=== PATIENT | male | born 1980 | race Hispanic/Latino ===

== ENCOUNTER 2019-09-17 15:12 | Emergency (ER) | payer OTHER ==
[~2019-09-17] VITALS: Ht 165.1 cm; Wt 93.0 kg
--- OUTSIDE RECORDS SUMMARY | ~2019-09-17 | XMS | Encounter Summary ---
Demographics + + + | Address | [address] | | | [place] [address] | + + + | Home Phone | | + + + | Preferred Language | Unknown | + + + | Marital Status | | + + + | Gnosticist Affiliation | Unknown | + + + | Race | Unknown | + + + | Ethnic Group | Unknown | + + + Author + + + | Author | [facility] | | | and [place] | + + + | Organization | [facility] | | | and [place] | + + + | Address | Unknown | + + + | Phone | Unavailable | + + + Support + + +---------+ + | Name | Relationship | Address | Phone | + + +---------+ + | Madiha Garcia | ECON | Unknown | | + + +---------+ + Care Team Providers + +------+ + | Care Brim Curler Name | Role | Phone | + +------+ + | Ladan Naidu PA-C | PCP | | + +------+ + Reason for Visit +--------+ + | Reason | Comments | +--------+ + | Other | Injection Post Surgery | +--------+ + Encounter Details +--------+ + + + + | Date | Type | Department | Care Team | Description | +--------+ + + + + | 09/29/ | Telephone | [facility] | Silverio Mustafa | Other (Injection | | 2019 | | [facility] | [address] | Post Surgery) | | | | [address] | [address] | | | | | [place], [place] | [place] [address] | | | | | [address] | [phone] | | | | | [phone] | | | +--------+ + + + + Social History + +-------+ +--------+------+ | Tobacco Use | Types | Packs/Day | Years | Date | | | | | Used | | + +-------+ +--------+------+ | Current Every Day | | 0.25 | | | | Smoker | | | | | + +-------+ +--------+------+ + +---+---+---+ | Smokeless Tobacco: | | | | | Never Used | | | | + +---+---+---+ + + +---------+ + | Alcohol Use | Drinks/Week | oz/Week | Comments | + + +---------+ + | No | | | | + + +---------+ + + + + | Sex Assigned at | Date Recorded | | | | + + + | Not on file | | + + + + + + + | Job Start Date | Occupation | Industry | + + + + | Not on file | Not on file | Not on file | + + + + + + + + | Travel History | Travel Start | Travel End | + + + + + + | No recent travel history available. | + + documented as of this encounter Plan of Treatment Not on filedocumented as of this encounter Visit Diagnoses Not on filedocumented in this encounter"
--- OUTSIDE RECORDS SUMMARY | ~2019-09-17 | XMS | Clinical Summary ---
Demographics + + + | Address | [address] | | | [place] [address] | + + + | Home Phone | | + + + | Preferred Language | Unknown | + + + | Marital Status | | + + + | Jew Affiliation | Unknown | + + + | Race | Unknown | + + + | Ethnic Group | Unknown | + + + Author + + + | Author | [facility] | | | and [place] | + + + | Organization | [facility] | | | and [...] Team Providers + +------+ + | Care Travel Accommodation Inspector Name | Role | Phone | + +------+ + | Ladan Naidu PA-C | PCP | | + +------+ + Allergies + + + + + + | Active Allergy | Reactions | Severity | Noted | Comments | | | | | Date | | + + + + + + | Aspirin | Rash | Low | 01/19/20 | | | | | | 18 | | + + + + + + | Ondansetron | Rash | Low | 01/19/20 | | | | | | 18 | | + + + + + + Medications + + + +---------+------+------+-------+ | Medication | Sig | Dispensed | Refills | Star | End | Statu | | | | | | t | Date | s | | | | | | Date | | | + + + +---------+------+------+-------+ | atorvaSTATin | Take 20 mg by mouth | | 0 | 08/0 | | Activ | | (LIPITOR) 20 mg | Daily. | | | 02/02 | | e | | tablet | | | | 18 | | | + + + +---------+------+------+-------+ | | | | 0 | 08/1 | | Activ | | HYDROcodone-acetamin | | | | 5/20 | | e | | ophen (NORCO) 10-325 | | | | 18 | | | | mg per tablet | | | | | | | + + + +---------+------+------+-------+ | | | | 0 | 08/2 | | Activ | | lidocaine-prilocaine | | | | 6/20 | | e | | (EMLA) cream | | | | 18 | | | + + + +---------+------+------+-------+ | SUDOGEST 12 HOUR | | | 0 | 06/2 | | Activ | | 120 MG 12 hr tablet | | | | 7/20 | | e | | | | | | 18 | | | + + + +---------+------+------+-------+ | Diclofenac Sodium | Place onto the | | 0 | | | Activ | | (DICLO GEL) 1 % KIT | skin. | | | | | e | + + + +---------+------+------+-------+ | busPIRone (BUSPAR) | Take 7.5 mg by mouth | | 0 | | | Activ | | 7.5 MG tablet | 3 times daily. | | | | | e | + + + +---------+------+------+-------+ | ibuprofen | | | 0 | 03/1 | | Activ | | (ADVIL,MOTRIN) 600 | | | | 5/20 | | e | | MG tablet | | | | 19 | | | + + + +---------+------+------+-------+ | VENTOLIN HFA 108 | | | 0 | 01/1 | | Activ | | (90 Base) MCG/ACT | | | | 4/20 | | e | | inhaler | | | | 19 | | | + + + +---------+------+------+-------+ | tiZANidine | | | 0 | 04/1 | | Activ | | (ZANAFLEX) 4 mg | | | | 8/20 | | e | | tablet | | | | 19 | | | + + + +---------+------+------+-------+ Active Problems + + + | Problem | Noted Date | + + + | S/P right ring finger trigger finger release on 08/11/18 | 08/22/2018 | + + + Family History + + +------+ + | Medical History | Relation | Name | Comments | + + +------+ + | No known problems | Father | | | + + +------+ + | Arthritis | Mother | | | + + +------+ + + +------+ + + | Relation | Name | Status | Comments | + +------+ + + | Father | | | | + +------+ + + | Mother | | Alive | | + +------+ + + Social History + +-------+ +--------+------+ [...] recent travel history available. | + + Last Filed Vital Signs + + + + + | Vital Sign | Reading | Time Taken | Comments | + + + + + | Blood Pressure | 134/81 | 10/06/2018 1:56 PM | | | | | PDT | | + + + + + | Pulse | 77 | 10/06/2018 1:56 PM | | | | | PDT | | + + + + + | Temperature | 36.6 C (97.9 F) | 10/06/2018 1:56 PM | | | | | PDT | | + + + + + | Respiratory Rate | 20 | 10/06/2018 1:56 PM | | | | | PDT | | + + + + + | Oxygen Saturation | 99% | 10/06/2018 1:56 PM | | | | | PDT | | + + + + + | Inhaled Oxygen | - | - | | | Concentration | | | | + + + + + | Weight | 92.5 kg (204 lb) | 08/11/2018 7:11 AM | | | | | PDT | | + + + + + | Height | 165.1 cm (5' 5") | 08/11/2018 7:11 AM | | | | | PDT | | + + + + + | Body Mass Index | 33.95 | 08/11/2018 7:11 AM | | | | | PDT | | + + + + + Plan of Treatment + + + + + | Health Maintenance | Due Date | Last Done | Comments | + + + + + | Vaccine: | | | | | Pneumococcal 19-64 | 7 | | | | (1 of 1 - PPSV23) | | | | + + + + + | Vaccine: | | | | | Dtap/Tdap/Td (1 - | 2 | | | | Tdap) | | | | + + + + + | Vaccine: Influenza | | 04/02/2018, 03/01/2017, | | | (Season Ended) | 0 | 02/23/2016, Additional history | | | | | exists | | + + + + + Results Not on filefrom Last 3 Months Insurance + +--------+ +--------+ +---------+--------+ | Payer | Benefi | Subscriber | Effect | Phone | Address | Type | | | t Plan | ID | tiny | | | | | | / | | Dates | | | | | | Group | | | | | | + +--------+ +--------+ +---------+--------+ | [employer] | [employer] | [id number] | 11/18/19 | [phone] | | Medica | | MEDICAID HMO | HEALTH | | 16-Pre | 1 | | id | | | MDCD | | sent | | | | | | [place] | | | | | | + +--------+ +--------+ +---------+--------+ | [employer] | [employer] | [id number] | | [phone] | | Medica | | MEDICAID HMO | HEALTH | | [phone] | 1 | | id | | | MDCD | | esent | | | | | | [place] | | | | | | + +--------+ +--------+ +---------+--------+ + +--------+ +--------+ + + | Guarantor Name | Accoun | Relation to | Date | Phone | Billing Address | | | t Type | Patient | of | | | | | | | | | | + +--------+ +--------+ + + | PadmajaelinaAris | Person | Self [birth year] | [address] | | | al/Fam | | 1981 | [phone] | [place], [place] | | | swapna | | | [address] (Home) | [address] | + +--------+ +--------+ + + | PadmajaelinaAris | Person | Self [birth year] | [address] | | | al/Fam | | 1981 | [phone] | [place], [place] | | | swapna | | | [address] (Home) | [address] | + +--------+ +--------+ + + Advance Directives + + + + + | Type | Date Recorded | Patient | Explanation | | | | Petrol Tanker Driver | | + + + + + | Power of | | | | | Ceramic Tile Installer | | | | + + + + + | Advance | 10/06/2018 6:45 | | | | Directive | AM | | | + + + + + + + + + + | Code Status | Date | Date | Comments | | | Activated | Inactivated | | + + + + + | Full Code | 08/11/2018 | 08/11/2018 | | | | 8:29 AM | 11:56 AM | | + + + + +
--- OUTSIDE RECORDS SUMMARY | ~2019-09-17 | XMS | Encounter Summary ---
Demographics + + + | Address | [address] | | | [place] [address] | + + + | Home Phone | | + + + | Preferred Language | Unknown | + + + | Marital Status | | + + + | Mandaeism Affiliation | Unknown | + + + | Race | Unknown | + + + | Ethnic Group | Unknown | + + + Author + + + | Author | [facility] | | | and [place] | + + + | Organization | [facility] | | | [...] Team Providers + +------+ + | Care Seedling Sorter Name | Role | Phone | + +------+ + | Ladan Naidu PA-C | PCP | | + +------+ + Reason for Visit +--------+ + | Reason | Comments | +--------+ + | Other | Canceled Pre-op apt | +--------+ + Encounter Details +--------+ + + + + | Date | Type | Department | Care Team | Description | +--------+ + + + + | 07/04/ | Telephone | [facility] | Silverio Mustafa | Other (Canceled | | 2019 | | [facility] | [address] | Pre-op apt) | | | | [address] | [address] | | | | | [place], [place] | [place] [address] | | | | | [address] | [phone] | | | | | [phone] | | | +--------+ + + + [...]
--- OUTSIDE RECORDS SUMMARY | ~2019-09-17 | XMS | Encounter Summary ---
Demographics + + + | Address | [address] | | | [place] [address] | + + + | Home Phone | | + + + | Preferred Language | Unknown | + + + | Marital Status | | + + + | Sikhism Affiliation | Unknown | + + + | Race | Unknown | + + + | Ethnic Group | Unknown | + + + Author + + + | Author | [facility] | | | and [place] | + + + | Organization | [facility] | | | [...] Team Providers + +------+ + | Care Laborer Vineyard Name | Role | Phone | + +------+ + | Ladan Naidu PA-C | PCP | | + +------+ + Reason for Visit + + + | Reason | Comments | + + + | Follow-up | R ring finger injection 01/18/18 | + + + Evaluate & Treat (Routine) +--------+--------+ + + + + | Status | Reason | Specialty | Diagnoses / | Referred By | Referred To | | | | | Procedures | Contact | Contact | +--------+--------+ + + + + | Closed | | Orthopedic | Diagnoses | Elysia, | [facility] | | | | Surgery | Primary | LÁZARO Pickering | Orthopedic | | | | | osteoarthrit | [address] | | | | | is, right | [place] | [place] | | | | | hand R ring | [address] | [place] | | | | | finger pain | [place], | [address] | | | | | Procedures | [place] [address] | Phone: | | | | | hand | Phone: | [phone] | | | | | specialist | [phone] | Fax: | | | | | | Fax: | [phone] | | | | | | [phone] | | +--------+--------+ + + + + Encounter Details +--------+---------+ + + + | Date | Type | Department | Care Team | Description | +--------+---------+ + + + | 02/08/ | Office | [facility] | Silverio Mustafa | Trigger ring finger, | | 2017 | Visit | [facility] | [address] | unspecified | | | | [address] | [address] | laterality (Primary | | | | [place], [place] | [place] [address] | Dx); Trigger finger, | | | | [address] | [phone] | right middle finger | | | | [phone] | | | +--------+---------+ + + + Social History + +-------+ [...] + + documented as of this encounter Last Filed Vital Signs + + + + + | Vital Sign | Reading | Time Taken | Comments | + + + + + | Blood Pressure | 130/86 | 02/08/2018 4:13 PM | | | | | PDT | | + + + + + | Pulse | 77 | 02/08/2018 4:13 PM | | | | | PDT | | + + + + + | Temperature | 36.6 C (97.9 F) | 02/08/2018 4:13 PM | | | | | PDT | | + + + + + | Respiratory Rate | 20 | 02/08/2018 4:13 PM | | | | | PDT | | + + + + + | Oxygen Saturation | 98% | 02/08/2018 4:13 PM | | | | | PDT | | + + + + + | Inhaled Oxygen | - | - | | | Concentration | | | | + + + + + | Weight | 93.9 kg (207 lb) | 02/08/2018 4:13 PM | | | | | PDT | | + + + + + | Height | 165.1 cm (5' 5") | 02/08/2018 4:13 PM | | | | | PDT | | + + + + + | Body Mass Index | 34.45 | 02/08/2018 4:13 PM | | | | | PDT | | + + + + + documented in this encounter Progress Notes Silverio Mutsafa MD - 02/08/2018 4:30 PM PDT Date of Service: 02/08/2018 Provider: Silverio Mustafa Pt. Name/Age/: Aris Garcia 37 y.o. 1980 Date of Evalutaion: 02/08/2018 HISTORY AND PHYSICAL CHIEF COMPLAINT: Chief Complaint Patient presents with Follow-up R ring finger injection 01/18/18 HISTORY OF PRESENT ILLNESS Aris Garcia is a 37 y.o. year old right hand dominant male that follows up in the off ice today for a history of multiple finger STS. He is now 3 weeks status post a right ring finger A1 ritchie injection for STS of the right ring finger. The patient reports he did hav e some initial relief approximately a week and a half. Then the morning catching and lockin g returned. He still has some referred pain to the volar PIP joint. He also reports the mi ddle finger catches and locks a lot but is nonpainful. Past Medical History: Diagnosis Date Asthma Past Surgical History: Procedure Laterality Date CARPAL TUNNEL RELEASE Bilateral SHOULDER SURGERY Family History Problem Relation Age of Onset Arthritis Mother No Known Problems Father Social History Substance Use Topics Smoking status: Current Every Day Smoker Packs/day: 0.25 Smokeless tobacco: Never Used Alcohol use No ALLERGIES Allergies Allergen Reactions Aspirin Rash Ondansetron Rash REVIEW OF SYSTEMS Review of systems: Patient denies any nausea vomiting fevers chills chest pain shortness o f breath difficulty breathing constipation diarrhea blood in the stool blood or in the urine . All other systems reviewed except as mentioned above and in the HPI were negative. PHYSICAL EXAM Vitals: 02/08/18 1613 BP: 130/86 Pulse: 77 Resp: 20 Temp: 36.6 C (97.9 F) PainSc: 7 PainLoc: Finger No acute distress. Alert and oriented to time, person and place. Regular rate and rhythm by radial pulse examination Chest rise equal and symmetric, no labored breathing Abdomen soft and non-tender Bilateral upper extremities: Wrist range of motion shows 60 degrees of flexion and 60 degrees of extension. Pronation a nd supination are 80 degrees apiece. Wrist examination shows negative finger extension test , IVONE, scaphoid shift, ballottement, TFCC, DRUJ, shuck and catch-up clunk testing. Digital range of motion is full with flexion to the distal palmar crease, extension includi ng hyperextension at the MP joints; opposition of the thumb is to the base of the small fing er. Marely's test is negative. Grind testing is negative. There is mild nodularity o f the right ring finger and middle finger and left middle finger flexor tendons. He is tend er to palpation at the right ring finger A1 ritchie. No triggering observed today. Tinel's is negative at the carpal tunnel, cubital tunnel, dorsal radial sensory nerve, radi al nerve, and Guyon's canal. The patient has 5 out of 5 strength in each of the thenars, fi rst dorsal interosseous, and FPL. Forearm compression test, Phalen's test, elbow compressio n test and cubital tunnel compression test are negative. There is 4 mm two-point discrimina tion in all digits. Vascular examination shows less than 2 second capillary refill, normal rugal and use patter ns; no trophic changes are noted. ASSESSMENT AND PLAN Aris Garcia is a 37 y.o. year old right hand dominant male with right ring and middle finger STS and left middle finger STS. PLAN: We discussed again the pathogenesis trigger fingers bilaterally. The patient did get relie f from the cortisone injection although it was temporarily. The right hand is the most symp tomatic hand with the ring and middle finger being involved. At this time the patient has f long conservative measures and he is indicated for a right ring and middle finger A1 ritchie release. The risks, benefits and alternatives of surgery were discussed at length. The risks includ e but are not limited to: Bleeding, infection, neurovascular damage, pain, stiffness, need for further surgeries, loss of limb and all risks associated with anesthesia including loss of life. The patient understood these risks. All questions were answered. The patient wan moreno to proceed with surgery. Patient to be scheduled for a right ring and middle finger A1 ritchie release/trigger finger releases. Electronically signed by: Silverio Mustafa MD 02/08/2018 16:30 CC: LÁZARO Figueredo Linda, PA-C Note: Part of this report was transcribed using voice recognition software. Every effort wa s made to ensure accuracy. However, inadvertent computerized content specialist errors may be pre sent. documented in thi s encounter Plan of Treatment Not on filedocumented as of this encounter Results CBC no Differential (02/08/2018 5:01 PM PDT) + +-------+ + + + | Component | Value | Ref Range | Performed | Pathologist | | | | | At | Signature | + +-------+ + + + | WBC | 8.6 | 4.6 - 10.5 K/uL | [place] | | | | | | [facility] | | | [facility] | | + +-------+ + + + | RBC | 4.53 | 4.36 - 5.83 | [place] | | | | | M/uL | [facility] | | | | [facility] | | + +-------+ + + + | Hemoglobin | 13.9 | 13.1 - 17.4 | [place] | | | | | g/dL | [facility] | | | [facility] | | + +-------+ + + + | Hematocrit | 41.4 | 39.0 - 51.9 % | [facility] | | | | | | [facility] | | + +-------+ + + + | MCV | 91.4 | 82.0 - 96.0 fL | [facility] | | | | | | [facility] | | + +-------+ + + + | MCH | 30.7 | 27.7 - 32.3 pg | [facility] | | | | | | [facility] | | + +-------+ + + + | MCHC | 33.6 | 32.0 - 36.9 | [place] | | | | | g/dL | [facility] | | | | [facility] | | + +-------+ + + + | RDW-CV | 13.7 | 0.0 - 17.0 % | [facility] | | | | | | [facility] | | | | | [facility] | | + +-------+ + + + | Platelet | 333 | 150 - 450 K/uL | [facility] | | | Count | | | [facility] | | | | | | [facility] | | + +-------+ + + + | MPV | 10.5 | 9.4 - 12.4 fL | [facility] | | | | | | [facility] | | | | | [facility] | | + +-------+ + + + + + | Specimen | + + | Blood | + + + + + + + | Performing | Address | City/State/Zipcode | Phone Number | | Organization | | | | + + + + + | [facility] | [address] | [place] | [phone] | | [facility] | | [address] | | + + + + + Basic Metabolic Panel (02/08/2018 5:01 PM PDT) + +---------+ + + + | Component | Value | Ref Range | Performed | Pathologist | | | | | At | Signature | + +---------+ + + + | Na | 138 | 132 - 143 | [place] | | | | | mmol/L | [facility] | [facility] | | + +---------+ + + + | K | 3.9 | 3.3 - 4.9 | [place] | | | | | mmol/L | [facility] | [facility] | | + +---------+ + + + | Cl | 103 | 95 - 108 mmol/L | [facility] | | | | | | [facility] | [facility] | | + +---------+ + + + | CO2 | 27 | 23 - 34 mmol/L | [facility] | | | | | | [facility] | | + +---------+ + + + | Anion Gap | 8 | 7 - 16 mmol/L | [facility] | | | | | | [facility] | | + +---------+ + + + | Glucose | 130 (H) | 70 - 110 mg/dL | [facility] | | | | | | [facility] | | | | [facility] | | + +---------+ + + + | BUN | 12 | 5 - 26 mg/dL | [facility] | | | | | | [facility] | | | | [facility] | | + +---------+ + + + | Creatinine | 0.99 | 0.70 - 1.40 | [facility] | | | | | mg/dL | [facility] | | | | | | [facility] | | + +---------+ + + + | eGFR if not | >60 | >=60 | [facility] | | | | | mL/min/1.73m2 | [facility] | | | [facility] | | | | | | [facility] | | + +---------+ + + + | Calcium | 8.9 | 8.3 - 10.0 | [facility] | | | | | mg/dL | [facility] | | | | | | [facility] | | + +---------+ + + + | BUN/Creatin | 12.1 | 7.0 - 24.0 | [facility] | | | ine Ratio | | | [facility] | | | | | | [facility] | | + +---------+ + + + + + | Specimen | + + | Blood | + + + + + + + | Performing | Address | City/State/Zipcode | Phone Number | | Organization | | | | + + + + + | [facility] | [address] | [place] | [phone] | | [facility] | | [address] | | + + + + + documented in this encounter Visit Diagnoses + + | Diagnosis | + + | Trigger ring finger, unspecified laterality - Primary | + + documented in this encounter
--- OUTSIDE RECORDS SUMMARY | ~2019-09-17 | XMS | Encounter Summary ---
Demographics + + + | Address | [address] | | | [place] [address] | + + + | Home Phone | | + + + | Preferred Language | Unknown | + + + | Marital Status | | + + + | Taoist Affiliation | Unknown | + + + | Race | Unknown | + + + | Ethnic Group | Unknown | + + + Author + + + | Author | [facility] | | | and [place] | + + + | Organization | [facility] | | | [...] Team Providers + +------+ + | Care Cosmetic Counselor Name | Role | Phone | + +------+ + | Ladan Naidu PA-C | PCP | | + +------+ + Reason for Visit + + + | Reason | Comments | + + + | Follow-up | [facility]OVE R Ring Trigger Finger Release DOS: 08/11/18 | + + + Encounter Details +--------+---------+ + + + | Date | Type | Department | Care Team | Description | +--------+---------+ + + + | 10/06/ | Office | [facility] | Silverio Mustafa | S/P right ring | | 2019 | Visit | [facility] | [address] | finger trigger | | | | [address] | [address] | finger release on | | | | [place], [place] | [place] [address] | 08/11/18 (Primary Dx) | | | | [address] | [phone] | | | | | [phone] | | | +--------+---------+ + + + [...] + + + + | Weight | - | - | | + + + + + | Height | - | - | | + + + + + | Body Mass Index | - | - | | + + + + + documented in this encounter Progress Notes Silverio Mustafa MD - 10/06/2018 2:15 PM PDT Date of Service: 10/06/2018 Provider: Silverio Mustafa Pt. Name/Age/: Aris Garcia 38 y.o. 1980 Date of Evalutaion: 10/06/2018 FOLLOW UP HAND SURGERY VISIT CHIEF COMPLAINT: Chief Complaint Patient presents with Follow-up EP PO R Ring Trigger Finger Release DOS: 08/11/18 HISTORY OF PRESENT ILLNESS Aris Garcia is a 38 y.o. year old right hand dominant male that follows up in the off ice today for his right ring finger. He is now 7-8 weeks after the A1 ritchie release. The patient reports about 6 week postop. He started to have pain again at the surgical site. D enies any drainage denies any numbness or tingling. Past Medical History: Diagnosis Date Asthma Past Surgical History: Procedure Laterality Date CARPAL TUNNEL RELEASE Bilateral FINGER TRIGGER RELEASE Right 08/11/2018 Procedure: RELEASE TRIGGER FINGEr Ring; Surgeon: Silverio Mustafa MD; Location: [facility] SURGERY SHOULDER SURGERY Family History Problem Relation Age of Onset Arthritis Mother No known problems Father Social History Tobacco Use Smoking status: Current Every Day Smoker Packs/day: 0.25 Smokeless tobacco: Never Used Substance Use Topics Alcohol use: No Drug use: No ALLERGIES Allergies Allergen Reactions Aspirin Rash Zofran [Ondansetron] Rash REVIEW OF SYSTEMS Review of systems: Patient denies any nausea vomiting fevers chills chest pain shortness o f breath difficulty breathing constipation diarrhea blood in the stool blood or in the urine . All other systems reviewed except as mentioned above and in the HPI were negative. PHYSICAL EXAM Vitals: 10/06/18 1356 BP: 134/81 Pulse: 77 Resp: 20 Temp: 36.6 C (97.9 F) PainSc: 6 PainLoc: Finger No acute distress. Alert and oriented to time, person and place. Regular rate and rhythm by radial pulse examination Chest rise equal and symmetric, no labored breathing Right upper extremity: Examination of the right ring finger reveals a healed transverse incision over the A1 pulle y. There is some thickening of the scar. Sensitivity to palpation over the scar. Patient is able to composite flex to the distal palmar crease and has full extension of the finger. Sensation is intact in the radial and ulnar side of all fingers. All fingers are warm and perfused. ASSESSMENT AND PLAN Aris Garcia is a 38 y.o. year old right hand dominant male 2 months after right ring finger A1 ritchie release. PLAN: Aris Garcia was seen in the office today for his right hand. He has some thickening of the scar tissue that is symptomatic. We discussed some scar massage and desensitization techniques. Patient to follow up with me in 4 weeks for reevaluation. Electronically signed by: Silverio Mustafa MD 10/06/2018 14:29 CC: Ladan Naidu PA-C No ref. provider found Note: Part of this report was transcribed using voice recognition software. Every effort wa s made to ensure accuracy. However, inadvertent computerized procurement inspector errors may be pre sent. documented in thi s encounter Plan of Treatment Not on filedocumented as of this encounter Visit Diagnoses + + | Diagnosis | + + | S/P right ring finger trigger finger release on 08/11/18 - Primary | + + documented in this encounter"
--- OUTSIDE RECORDS SUMMARY | ~2019-09-17 | XMS | Encounter Summary ---
Demographics + + + | Address | [address] | | | [place] [address] | + + + | Home Phone | | + + + | Preferred Language | Unknown | + + + | Marital Status | | + + + | Muslim Affiliation | Unknown | + + + | Race | Unknown | + + + | Ethnic Group | Unknown | + + + Author + + + | Author | [facility] | | | and [place] | + + + | Organization | [facility] | | | [...] Team Providers + +------+ + | Care Complaint Coordinator Name | Role | Phone | + +------+ + | Ladan Naidu PA-C | PCP | | + +------+ + Reason for Visit + + + | Reason | Comments | + + + | Post-op Exam | R ring finger trigger finger DOS: 08/11/2018 | + + + Encounter Details +--------+ + + + + | Date | Type | Department | Care Team | Description | +--------+ + + + + | 08/14/ | Clinical | [facility] | Silverio Mustafa | Trigger finger, | | 2018 | Support | [facility] | [address] | unspecified finger, | | | | [address] | [address] | unspecified | | | | [place], [place] | [place] [address] | laterality (Primary | | | | [address] | [phone] | Dx) | | | | [phone] | | | | | | | [place] [address], [place] | | | | | | [address] | | | | | | [place], [place] | | | | | | [address] | | | | | | [phone] | | | | | | | | +--------+ + + + [...] + + + | Blood Pressure | 135/69 | 08/14/2018 11:56 AM | | | | | PDT | | + + + + + | Pulse | 73 | 08/14/2018 11:56 AM | | | | | PDT | | + + + + + | Temperature | 36.4 C (97.5 F) | 08/14/2018 11:56 AM | | | | | PDT | | + + + + + | Respiratory Rate | 20 | 08/14/2018 11:56 AM | | | | | PDT | | + + + + + | Oxygen Saturation | 98% | 08/14/2018 11:56 AM | | | | | PDT [...] + + + documented in this encounter Patient Instructions Patient Instructions Fina Love RN - 08/14/2018 12:00 PM PDT First Post-operative visit Instructions Wound -- The purpose of the first post-operative visit is to check the wound for any infection or drainage. Serous (clear fluid) or serosanguinous (clear bloody) drainage on the dressing is completely normal after the surgery. -- It is common for simple procedures to have significant bruising or swelling. This is no rmal. The bruising can commonly be up the forearm and away from the surgery site (as the all droplet of blood travels up the flexor tendons in the forearm). -- Suture is a foreign body for your hand and occasionally you can have some redness around the wound. That will improve once we take out the sutures at 10-14 days. -- If the redness (erythema) keeps worsening or if it is accompanied with fevers, chills an d drainage then call the office for further advice. Dressing -- On today's visit the bulky dressing will be changed for a smaller less constrictive dres sing. This allows for more range of motion of the fingers and wrist. --Until post operative day number 7 keep the wound covered and dry. The dressing can by juma nged as frequently as needed. It only needs a simple gauze dressing or large band-aid. If t he dressing gets soiled please change the dressing. -- Prevent it from getting wet during bathing/showering by covering it up with a plastic ba g. -- Starting 1 week after your surgery the dressing can be removed for showers and hand wash ing. No scrubbing of the wound. Avoid submerging the wound in the sink or bathtub. Just l et the water run over the wound. Afterwards pat the incision dry and replace the band-aid o r dry gauze. -After post-operative day 10 the wound does not need to be covered anymore. If there is an area that is slow to heal or if you feel the need to keep it covered in public to keep it c lean, feel free to do so. Numbness after carpal tunnel release -- There is usually an immediate improvement of in some of the symptoms, especially the nig ht time symptoms after surgery. Depending on how severe the carpal tunnel syndrome was befo re surgery, it may take several weeks to months for the numbness to improve or dissipate. -- We will continue to monitor the numbness at each post-operative visit for improvement. Pain medication -- For most soft tissue procedures you should not require any strong pain medication by you r first post-operative visit. Any occasional aches or discomfort at the surgery site should be manageable with over the counter pain medications such as tylenol or ibuprofen. If you are experiencing unmanageable pain please call the office for further advice. Exercises -- Gentle hand and wrist range of motion exercises can started after the first post-operati ve dressing change. -- Below are some exercises for carpal tunnel syndrome that are effective for helping regai n range of motion after most soft tissue procedures, not just carpal tunnel syndrome. -- The most important exercise to work on during the first week is being able to make a com plete fist. Driving -- To drive you must no longer be taking narcotic pain pills (plain Tylenol is allowed). Al so, the operative hand must feel strong enough to manage driving. Follow-up -- Please make sure to schedule your second post-operative visit today (10-14 days from the surgery). At your next visit the sutures will be removed. When to Call If you have severe or increased pain not relieved by medication. If you have any side effects to medications; such as, rash, nausea, headache, vomiting. If you have an oral temperature over 101 degrees. If you have any yellowish or greenish drainage from the incisions or notice a foul odor. If you have bleeding from the incisions that is difficult to control with light pressure. If you have loss of feeling or motion. If you have any sign of abscesses, open sores, skin peeling or lumpiness. For Medical Questions, Please Call: , Tuesday - Tuesday, 8 a.m. - 5 p.m. After hours or on the weekends call the same number, which will transfer you to the answeri service at the hospital and ask for the advisor consultant orthopedic provider. Be sure to mention t hat you've had surgery recently. documented in this encounter Progress Notes Fina Love RN - 08/14/2018 12:00 PM PDTFormatting of this note might be different f rom the original. Date of Service: 08/14/2018 Surgeon: Silverio Mustafa MD Pt. Name/Age/: Aris Garcia 38 y.o. 1980 Date of Evalutaion: 08/14/2018 NURSE ONLY FIRST WEEK FOLLOW UP NOTE CHIEF COMPLAINT: Chief Complaint Patient presents with Post-op Exam R ring finger trigger finger DOS: 08/11/2018 HISTORY OF PRESENT ILLNESS Aris Garcia is a 38 y.o. year old male that follows up in the office 1 week after R r ing finger trigger release. The patient reports: Pain Level: 3 / 10 Improvement in symptoms: yes Numbness: none Fevers or chills: no Drainage: no PHYSICAL EXAM Vitals: 08/14/18 1156 BP: 135/69 Pulse: 73 Resp: 20 Temp: 36.4 C (97.5 F) PainSc: 3 PainLoc: Hand Right upper extremity: On today's examination there is: Ecchymosis: mild Swelling: mild Erythema: none Drainage: none Composite flexion to about 0.5 cm from the distal palmar crease. Fingers are warm and perfused: yes PLAN 1. Dressing change and wound check today. 2. Range of motion exercises reinforced and first week post-op instructions given to patie nt. 3. Patient to return in 1 week for suture removal. Pt. Has excellent ROM. Incision clean, dry & intact. No redness noted. Pt. States sx hav e improved, denies numbness and tingling. Denies fevers. Sensation intact in all fingers. Swelling moderate. Pt. Will follow PO exercise and incision care instructions, and call of if concerns arise. He will plan to return in 1 wk for 2 wk PO apt. Fina Love RN Past Medical History: Diagnosis Date Asthma Past Surgical History: Procedure Laterality Date CARPAL TUNNEL RELEASE Bilateral FINGER TRIGGER RELEASE Right 08/11/2018 Procedure: RELEASE TRIGGER FINGEr Ring; Surgeon: Silverio Mustafa MD; [facility] SH[facility] SURGERY Family History Problem Relation Age of Onset Arthritis Mother No known problems Father Social History Substance Use Topics Smoking status: Current Every Day Smoker Packs/day: 0.25 Smokeless tobacco: Never Used Alcohol use No ALLERGIES Allergies Allergen Reactions Aspirin Rash Ondansetron Rash documented in th is encounter Plan of Treatment Not on filedocumented as of this encounter Visit Diagnoses + + | Diagnosis | + + | Trigger finger, unspecified finger, unspecified laterality - Primary | + + documented in this encounter"
--- OUTSIDE RECORDS SUMMARY | ~2019-09-17 | XMS | Encounter Summary ---
Demographics + + + | Address | [address] | | | [place] [address] | + + + | Home Phone | | + + + | Preferred Language | Unknown | + + + | Marital Status | | + + + | Judaism Affiliation | Unknown | + + + | Race | Unknown | + + + | Ethnic Group | Unknown | + + + Author + + + | Author | [facility] | | | and [place] | + + + | Organization | [facility] | | [...] Providers + +------+ + | Care Brim Setter Name | Role | Phone | + +------+ + | Ladan Naidu PA-C | PCP | | + +------+ + Reason for Visit + + + | Reason | Comments | + + + | Finger Pain | R ring finger pain | + + + Evaluate & Treat (Routine) +--------+--------+ + + + + | Status | Reason | Specialty | Diagnoses / | Referred By | Referred To | | | | | Procedures | Contact | Contact | +--------+--------+ + + + + | Closed | | Orthopedic | Diagnoses | [facility] | | | | Surgery | Primary | [facility] | Orthopedic | | | | | osteoarthrit | [address] | | | | | is, right | [place] | [place] | | | | | hand R ring | [address] | [place] | | | | | finger pain | [place], | [address] | | | | | Procedures | [place] [address] | Phone: | | | | | hand | Phone: | [phone] | | | | | specialist | [phone] | Fax: | | | | | | Fax: | [phone] | | | | | | [phone] | | +--------+--------+ + + + + Encounter Details +--------+---------+ + + + | Date | Type | Department | Care Team | Description | +--------+---------+ + + + | 01/18/ | Office | [facility] | Silverio Mustafa | Trigger ring finger | | 2018 | Visit | [facility] | [address] | of right hand | | | | [address] | [address] | (Primary Dx) | | | | [place], [place] | [place] [address] | | | | | [address] | [phone] | | | | | [phone] | | | +--------+---------+ + + + Social History + +-------+ +--------+------+ | Tobacco Use | Types | Packs/Day | Years | Date | | | | | Used | | + +-------+ +--------+------+ | Current Every Day | | | | | | Smoker | | | | | + +-------+ +--------+------+ + +---+---+---+ | Smokeless Tobacco: | | | | | Never Used | | | | + +---+---+---+ + + + | Sex Assigned at [...] this encounter Last Filed Vital Signs + +---------+ + + | Vital Sign | Reading | Time Taken | Comments | + +---------+ + + | Blood Pressure | 131/92 | 01/18/2018 4:26 PM | | | | | PDT | | + +---------+ + + | Pulse | 87 | 01/18/2018 4:26 PM | | | | | PDT | | + +---------+ + + | Temperature | - | - | | + +---------+ + + | Respiratory Rate | 16 | 01/18/2018 4:26 PM | | | | | PDT | | + +---------+ + + | Oxygen Saturation | 100% | 01/18/2018 4:26 PM | | | | | PDT | | + +---------+ + + | Inhaled Oxygen | - | - | | | Concentration | | | | + +---------+ + + | Weight | - | - | | + +---------+ + + | Height | - | - | | + +---------+ + + | Body Mass Index | - | - | | + +---------+ + + documented in this encounter Progress Notes Silverio Mustafa MD - 01/18/2018 4:00 PM PDT Date of Service: 01/18/2018 Provider: Silverio Mustafa Pt. Name/Age/: Aris Giangelina 37 y.o. 1980 Date of Evalutaion: 01/18/2018 INITIAL HAND SURGERY VISIT CHIEF COMPLAINT: Chief Complaint Patient presents with Finger Pain R ring finger pain HISTORY OF PRESENT ILLNESS Aris Garcia is a 37 y.o. year old right hand dominant male that presents to the offic e today For right ring finger and left middle finger pain and mechanical symptoms. The rios ent reports he has had trigger fingers in the past on bilateral hands. He has dealt with th is for the last 2 years. He has had prior injections in [place] for the right middle finger. Currently the right ring finger is the most symptomatic and painful one. The patient repo rts that the right ring finger gets stuck in flexion at times and he has to pop it open. Wh en that happens he is got excruciating pain at the volar side of the base of the right ring finger. He denies any numbness or tingling. Past Medical History: Diagnosis Date Asthma Past Surgical History: Procedure Laterality Date CARPAL TUNNEL RELEASE Bilateral SHOULDER SURGERY ALLERGIES Allergies Allergen Reactions Aspirin Rash Ondansetron Rash REVIEW OF SYSTEMS Review of systems: Patient denies any nausea vomiting fevers chills chest pain shortness o f breath difficulty breathing constipation diarrhea blood in the stool blood or in the urine . All other systems reviewed were negative. PHYSICAL EXAM Vitals: 01/18/18 1626 BP: (!) 131/92 Pulse: 87 Resp: 16 PainSc: 8 PainLoc: Finger No acute distress. Alert and oriented to time, person and place. Regular rate and rhythm by radial pulse examination Chest rise equal and symmetric, no labored breathing Bilateral upper extremities: Wrist range of motion [...] o f the right ring finger and left middle finger flexor tendons. He is tender to palpation at the right ring finger [...] patter ns; no trophic changes are noted. Procedure note: After consent was obtained the area surround thing A1 ritchie of the right ring finger was c leaned with chlorhexidine. A 1ml of 1:1 mixture of kenolog 40 and lidocaine 1% was then inj ected at the A1 ritchie. The patient did not have any adverse effects from the medication. There was no bleeding. A band-aid was applied. Patient experienced immediate relief from t he lidocaine. ASSESSMENT AND PLAN Aris Garcia is a 37 y.o. year old right hand dominant male with a right ring finger a nd left middle finger trigger finger/STS. PLAN: We discussed the pathogenesis of treatment options today for trigger fingers. The patient elected for a cortisone injection for the most symptomatic finger, the right ring finger. S ee procedure note above. The patient was instructed if there is any complications or proble ms to contact the office immediately. Patient will return in 3-4 weeks to evaluate the effe ctiveness of the cortisone injection. Electronically signed by: Silveiro Mustafa MD 01/18/2018 17:38 CC: LÁZARO Figueredo Linda, PA-C Note: Part of this report was transcribed using voice recognition software. Every effort wa s made to ensure accuracy. However, inadvertent computerized machinist apprentice errors may be pre sent. documented in thi s encounter Plan of Treatment Not on filedocumented as of this encounter Visit Diagnoses + + | Diagnosis | + + | Trigger ring finger of right hand - Primary Trigger finger (acquired) | + + documented in this encounter Administered Medications + +--------+ +-------+------+ + | Medication Order | MAR | Action | Dose | Rate | Site | | | Action | Date | | | | + +--------+ +-------+------+ + | triamcinolone acetonide | Given | 01/19/20 | 40 mg | | Hand-Rig | | (KENALOG-40) 40 mg/mL injection | | 18 5:38 | | | ht | | 40 mg 40 mg, Intra-articular, | | PM PDT | | | | | ONCE, 01/18/18 at 1800, For 1 | | | | | | | dose, Shake well. Not for IV | | | | | | | use., | | | | | | + +--------+ +-------+------+ + +---+---+ | | | +---+---+ documented in this encounter"
--- OUTSIDE RECORDS SUMMARY | ~2019-09-17 | XMS | Encounter Summary ---
Demographics + + + | Address | [address] | | | [place] [address] | + + + | Home Phone | | + + + | Preferred Language | Unknown | + + + | Marital Status | | + + + | Oriental Orthodox Affiliation | Unknown | + + + | Race | Unknown | + + + | Ethnic Group | Unknown | + + + Author + + + | Author | [facility] | | | and [place] | + + + | Organization | [facility] | | | and [...] Team Providers + +------+ + | Care Cylinder Die Machine Helper Name | Role | Phone | + +------+ + | Ladan Naidu PA-C | PCP | | + +------+ + Reason for Visit Auth/Cert (Routine) +--------+--------+ + + + + | Status | Reason | Specialty | Diagnoses / | Referred By | Referred To | | | | | Procedures | Contact | Contact | +--------+--------+ + + + + | | | | Diagnoses | | | | | | | Trigger | | | | | | | finger, | | | | | | | right ring | | | | | | | finger | | | | | | | Procedures | | | | | | | MA INCISE | | | | | | | FINGER | | | | | | | TENDON | | | | | | | SHEATH | | | +--------+--------+ + + + + Encounter Details +--------+ + + + + | Date | Type | Department | Care Team | Description | +--------+ + + + + | 08/11/ | Hospital | [facility] | Silverio Mustafa | | | 2019 | Encounter | [facility] | [address] | | | | | [address] | [address] | | | | | [place] | [place], [place] [address] | | | | | [address] | [phone] | | | | | [phone] | | | +--------+ + + + [...] + + + | Blood Pressure | 115/69 | 08/11/2018 9:15 AM | | | | | PDT | | + + + + + | Pulse | 75 | 08/11/2018 9:15 AM | | | | | PDT | | + + + + + | Temperature | 36.4 C (97.5 F) | 08/11/2018 9:15 AM | | | | | PDT | | + + + + + | Respiratory Rate | 16 | 08/11/2018 9:15 AM | | | | | PDT | | + + + + + | Oxygen Saturation | 99% | 08/11/2018 9:15 AM | | | | | PDT [...] + + + documented in this encounter Discharge Instructions Instructions Silverio Mustafa MD - 08/11/2018Post-op Care Instructions These instructions are to compliment the information given by the nursing staff and physici an. They cover many of the common questions. Wound Care -- Leave the surgery dressing on until first post-operative visit in 4-5 days. Keep the d ressing clean and dry. Prevent it from getting wet during bathing/showering by covering it up with a plastic bag. -- If the dressing gets soiled, cover up the sutures with a dry gauze or large band-aid. -- By 7 days post-op the dressing can be removed for showers and hand washing. No scrubbin g of the wound. Avoid submerging the wound in the sink or bathtub. Just let the water run over the wound. Afterwards pat the incision dry and replace the band-aid or dry gauze. -- If purulent drainage (thick white or greenish in color) is coming from the wound, or the wound has increasing redness, or if you are having a temperature of 101 or higher, please report these symptoms to your surgeon or the doctor disaster or damage control specialist. Pain and Swelling -- To lessen pain and swelling, keep the operative hand above your heart. Avoid using a sl ing since this will increase swelling to the hand. Ice, in a plastic bag or towel, can be a pplied to dressing to help with the pain. We recommend no more than 20 minutes, 4-5 times p er day. Do not place ice or ice packs directly on the skin. -- Narcotic pain medication may be prescribed for use after you leave the hospital. If you need the narcotic medication for pain control watch for constipation. You may want to use an over the counter stool softener. Tylenol products may be used instead and is usua lly the preferred pain control for this surgery. If narcotics were prescribed, try to wean the medication over post-operative day 1-3. By post-op day 4, only over the counter tylenol or ibuprofen should be needed. It can help to stagger your pain medication with ibuprofen or Aleve as needed. If a refill of medication is needed, please call the office during regular business hours, Tuesday-Tuesday 8:00 a.m. to 5:00 p.m. In general, refills will not be made after hours or on weekends, so please plan ahead. Exercises Gentle hand and wrist range of motion exercises can started after the first post-operative dressing change. Driving To drive you must no longer be taking narcotic pain pills (plain Tylenol is allowed). Also, you must feel strong and alert. Follow-up Make sure an appointment has been scheduled for you at 4-5 days post-operatively for a woun d check and dressing change. Sutures will be removed at 2 weeks post-operatively. Please c all. When to Call If you have increased swelling or bruising. If swelling and redness persist after a few days. If you have increased redness along the incision. If you have severe or increased pain not relieved by medication. If you have any side effects to medications; such as, rash, nausea, headache, vomiting. If you have an oral temperature over 100.4 degrees. If you have any yellowish or [...] number, which will transfer you to the [facility] service at the hospital and ask for the disaster or damage control specialist orthopedic provider. Be sure to mention t hat you've had surgery recently. documented in this encounter Medications at Time of Discharge + + + +---------+ + + | Medication | Sig | Dispensed | Refills | Start | End Date | | | | | | Date | | + + + +---------+ + + | atorvaSTATin | Take 20 mg by mouth | | 0 | 12/23/19 | | | (LIPITOR) 20 mg | Daily. | | | 18 | | | tablet | | | | | | + + + +---------+ + + | busPIRone (BUSPAR) | Take 7.5 mg by mouth | | 0 | | | | 7.5 MG tablet | 3 times daily. | | | | | + + + +---------+ + + | Diclofenac Sodium | Place onto the | | 0 | | | | (DICLO GEL) 1 % KIT | skin. | | | | | + + + +---------+ + + | | | | 0 | 12/29/19 | | | HYDROcodone-acetamin | | | | 18 | | | ophen (NORCO) 10-325 | | | | | | | mg per tablet | | | | | | + + + +---------+ + + | ibuprofen | | | 0 | / | | | (ADVILMOTRIN) 600 | | | | 19 | | | MG tablet | | | | | | + + + +---------+ + + | | | | 0 | 01/09/20 | | | lidocaine-prilocaine | | | | 18 | | | (EMLA) cream | | | | | | + + + +---------+ + + | SUDOGEST 12 HOUR | | | 0 | 11/10/19 | | | 120 MG 12 hr tablet | | | | 18 | | + + + +---------+ + + | VENTOLIN HFA 108 | | | 0 | 05/29/19 | | | (90 Base) MCG/ACT | | | | 19 | | | inhaler | | | | | | + + + +---------+ + + documented as of this encounter Plan of Treatment Not on filedocumented as of this encounter Procedures + +--------+ + + + | Procedure Name | Priori | Date/Time | Associated Diagnosis | Comments | | | ty | | | | + +--------+ + + + | RELEASE TRIGGER | | 08/11/2018 | Trigger finger, | | | FINGER | | 7:47 AM | right ring finger | | | | | PDT | | | + +--------+ + + + documented in this encounter Visit Diagnoses Not on filedocumented in this encounter
--- OUTSIDE RECORDS SUMMARY | ~2019-09-17 | XMS | Encounter Summary ---
Demographics + + + | Address | [address] | | | [place] [address] | + + + | Home Phone | | + + + | Preferred Language | Unknown | + + + | Marital Status | | + + + | Mandaeism Affiliation | Unknown | + + + | Race | Unknown | + + + | Ethnic Group | Unknown | + + + Author + + + | Author | [facility] | | | and [place] | + + + | Organization | [facility] | | | and [...] Team Providers + +------+ + | Care Cut Out Operator Name | Role | Phone | + +------+ + | Ladan Naidu PA-C | PCP | | + +------+ + Reason for Visit + + + | Reason | Comments | + + + | Lack of Resources | FA COVERAGE | + + + Encounter Details +--------+ + + + + | Date | Type | Department | Care Team | Description | +--------+ + + + + | 03/28/ | Telephone | [facility] | Silverio Mustafa | Lack of Resources | | 2018 | | [facility] | [address] | (FA COVERAGE) | | | | [address] | [address] | | | | | [place] | [place] [address] | | | | | [address] | [phone] | | | | | [phone] | | | +--------+ + + + [...]
--- OUTSIDE RECORDS SUMMARY | ~2019-09-17 | XMS | Encounter Summary ---
Demographics + + + | Address | [address] | | | [place] [address] | + + + | Home Phone | | + + + | Preferred Language | Unknown | + + + | Marital Status | | + + + | Latter Day Affiliation | Unknown | + + + | Race | Unknown | + + + | Ethnic Group | Unknown | + + + Author + + + | Author | [facility] | | | and [place] | + + + | Organization | [facility] | | | [...] Team Providers + +------+ + | Care Education Supervisor Name | Role | Phone | + +------+ + | Ladan Naidu PA-C | PCP | | + +------+ + Reason for Visit + + + | Reason | Comments | + + + | Pre-op Exam | R trigger finger release, 4th finger | + + + Encounter Details +--------+---------+ + + + | Date | Type | Department | Care Team | Description | +--------+---------+ + + + | 08/08/ | Office | [facility] | Silverio Mustafa | Trigger ring finger | | 2019 | Visit | [facility] | [address] | of right hand | | | | [address] | [address] | (Primary Dx) | | | | [place] | [place], [place] [address] | | | | | [address] | [phone] | | | | | [phone] | | | +--------+---------+ + + + [...] +---------+ + + | Blood Pressure | - | - | | + +---------+ + + | Pulse | 88 | 08/08/2018 2:45 PM | | | | | PDT | | + +---------+ + + | Temperature | - | - | | + +---------+ + + | Respiratory Rate | 20 | 08/08/2018 2:45 PM | | | | | PDT | | + +---------+ + + | Oxygen Saturation | 100% | 08/08/2018 2:45 PM | | | | | PDT [...] encounter Progress Notes Silverio Mustafa MD - 08/08/2018 3:00 PM PDT Date of Service: 08/08/2018 Provider: Silverio Mustafa Pt. Name/Age/: Aris Garcia 38 y.o. 1980 Date of Evalutaion: 08/08/2018 HISTORY AND PHYSICAL CHIEF COMPLAINT: Chief Complaint Patient presents with Pre-op Exam R trigger finger release, 4th finger HISTORY OF PRESENT ILLNESS Aris Garcia is a 38 y.o. year old right hand dominant male with a history of Right ri ng finger trigger finger. Patient has a history of multiple trigger fingers with previous i njections to both hands. Unfortunately the injection to the right ring finger A1 ritchie was unsuccessful and the patient continued to have right ring finger volar base pain. This jean paul n radiates up to the PIP joint. He is here today for preoperative examination. He is sched uled for surgery this Tuesday. Past Medical History: Diagnosis Date Asthma Past [...] the HPI were negative. PHYSICAL EXAM Vitals: 08/08/18 1445 Pulse: 88 Resp: 20 PainSc: 7 PainLoc: Finger No acute distress. Alert and oriented to time, person and place. Regular rate and rhythm by radial pulse examination Chest rise equal and symmetric, no labored breathing Right upper extremity: Wrist range of motion shows 60 degrees [...] negative. Grind testing is negative. There is nodularity of the Right ring finger flexor tendons. Tenderness to palpation at the A1 pulleys of the right ring finger. Triggering was not observed today on exam. EPL/FPL/Interossei motor function intact. Sensation intact on the radial and ulnar sides o f all fingers. Vascular examination shows less than 2 second capillary refill, normal rugal and use patterns; no trophic changes are noted. ASSESSMENT AND PLAN Aris Garcia is a 38 y.o. year old right hand dominant male with right ring finger STS . PLAN: We discussed the pathogenesis and treatment options again for trigger fingers. The patient has had multiple trigger injections without relief to the right ring finger. He is indicat ed for right ring finger A1 ritchie release. Patient is scheduled for this Tuesday. The risks, benefits and alternatives of surgery were discussed at length. The risks includ e but are not limited to: Bleeding, infection, neurovascular damage, pain, stiffness, need for further surgeries, loss of limb and all risks associated with anesthesia including loss of life. The patient understood these risks. All questions were answered. The patient wan moreno to proceed with surgery. Electronically signed by: Silverio Mustafa MD 08/08/2018 15:12 CC: Ladan Naidu PA-C No ref. provider found Note: Part of this report was transcribed using voice recognition software. Every effort wa s made to ensure accuracy. However, inadvertent computerized assembler installer structures errors may be pre sent. documented in thi s encounter Plan of Treatment Not on filedocumented as of this encounter Visit Diagnoses + + | Diagnosis | + + | Trigger ring finger of right hand - Primary Trigger finger (acquired) | + + documented in this encounter"
--- OUTSIDE RECORDS SUMMARY | ~2019-09-17 | XMS | Encounter Summary ---
Demographics + + + | Address | [address] | | | [place] [address] | + + + | Home Phone | | + + + | Preferred Language | Unknown | + + + | Marital Status | | + + + | Confucianist Affiliation | Unknown | + + + | Race | Unknown | + + + | Ethnic Group | Unknown | + + + Author + + + | Author | [facility] | | | and [place] | + + + | Organization | [facility] | | | and [...] Team Providers + +------+ + | Care Solid Plasterer Name | Role | Phone | + [...] | | | | | | | [place] INCISE | | | | | | | FINGER | | | | | | | TENDON | | | | | | | SHEATH | | | +--------+--------+ + + + + Encounter Details +--------+---------+ + + + | Date | Type | Department | Care Team | Description | +--------+---------+ + + + | 08/11/ | Surgery | [facility] | Silverio Mustafa | RELEASE TRIGGER | | 2019 | | [facility] | [address] | [address] | | | | [address] | [address] | | | | | [place], [place] | [place] [address] | | | | | [address] | [phone] | | | | | [phone] | | | +--------+---------+ + + + [...] + documented in this encounter Discharge Instructions Silverio Bass MD - 08/11/2018Post-op Care Instructions These instructions [...] symptoms to your surgeon or the doctor ultrasonic cleaner. Pain and Swelling -- To lessen pain [...] number, which will transfer you to the [employer] [facility] service at the hospital and ask for the ultrasonic cleaner orthopedic provider. Be sure to mention t [...] | ibuprofen | | | 0 | 07/29/19 | | | (ADVIL,MOTRIN) 600 | | | | 19 | [...] Diagnosis | + + | Trigger finger, right ring finger | + + documented in this encounter Administered Medications + +--------+ + +------+ + | Medication Order | MAR | Action | Dose | Rate | Site | | | Action | Date | | | | + +--------+ + +------+ + | bacitracin topical ointment | Given | 08/12/19 | 1 | | Surgical | | PRN, Starting 08/11/18 at | | 19 8:01 | Applicat | | Site | | 0801, Intra-op | | AM PDT | ion | | | + +--------+ + +------+ + +---+---+ | | | +---+---+ + +-------+ +---------+---+ + | bupivacaine (PF) (MARCAINE) | Given | 08/12/19 | 7.5 mLs | | Surgical | | 0.5% injection PRN, Starting Fri | | 19 8:07 | | | Site | | 08/11/18 at 0807, Intra-op | | AM PDT | | | | + +-------+ +---------+---+ + +---+---+ | | | +---+---+ + +-------+ +-------+---+ + | lidocaine 2% injection PRN, | Given | 08/12/19 | 3 mLs | | Surgical | | Starting 08/11/18 at 0805, | | 19 8:05 | | | Site | | Intra-op | | AM PDT | | | | + +-------+ +-------+---+ + +---+---+ | | | +---+---+ documented in this encounter
--- OUTSIDE RECORDS SUMMARY | ~2019-09-17 | XMS | Encounter Summary ---
Demographics + + + | Address | [address] | | | [place] [address] | + + + | Home Phone | | + + + | Preferred Language | Unknown | + + + | Marital Status | | + + + | Mormonism Affiliation | Unknown | + + + | Race | Unknown | + + + | Ethnic Group | Unknown | + + + Author + + + | Author | [facility] | | | and [place] | + + + | Organization | [facility] | | | [...] Team Providers + +------+ + | Care Athletic Field Custodian Name | Role | Phone | + [...] | | | | | | | IN INCISE | | | | | | | FINGER | | | | | | | TENDON | | | | | | | SHEATH | | | +--------+--------+ + + + + Encounter Details +--------+ + + + + | Date | Type | Department | Care Team | Description | +--------+ + + + + | 08/11/ | Anesthesia | [facility] | Ernie Rojas | | | 2019 | Event | HOSP[facility] | L, DO [address] | | | | | [address] | [place], [place] | | | | | [place], [place] | [address] | | | | | [address] | | | | | | [phone] | | | +--------+ + + + + Anesthesia Record + + + + + | Procedure Name | Responsible | Anesthesia Start | Anesthesia Stop Time | | | Anesthesiologist | Time | | + + + + + | RELEASE TRIGGER | Ernie Rojas, | 08/11/1849 | 08/11/18 0811 | | [address] Ring (Right | DO | | | | Finger) | | | | + + + + + +----+---+ + + | Da | T | Event | Comment | | te | i | | | | | m | | | | | e | | | +----+---+ + + | 03 | 0 | | | | /2 | 7 | | | | 9/ | 3 | | | | 20 | 1 | | | | 19 | | | | +----+---+ + + | | 0 | An Checkout | Pre-use anesthesia machine/equipment checkout. | | | 7 | | | | | 4 | | | | | 9 | | | +----+---+ + + | | 0 | An Start | Reassessment prior to anesthesia induction/procedure. | | | 7 | | | | | 4 | | | | | 9 | | | +----+---+ + + | | 0 | Pre-Procedu | | | | 7 | ral Timeout | | | | 5 | Completed | | | | 1 | | | +----+---+ + + | | 0 | First | | | | 7 | Inc/Proc St | | | | 5 | | | | | 5 | | | +----+---+ + + | | 0 | Breathing | | | | 7 | Spontaneous | | | | 5 | ly | | | | 9 | | | +----+---+ + + | | 0 | an stop | | | | 8 | data | | | | 1 | | | | | 1 | | | +----+---+ + + | | 0 | An Stop | Patient handed off to recovery nurse. | | | 1 | | | | | 1 | | | +----+---+ + + +------+ | Meds | +------+ + +--------+ | Name | Total | + +--------+ | lidocaine 2% | 100 mg | + +--------+ | midazolam 1 mg/mL (2 mL vial) | 2 mg | + +--------+ | propofol | 160 mg | + +--------+ | ceFAZolin in dextrose (ANCEF) | 1 g | | IVPB 1 g | | + +--------+ | lactated ringers (Infusion) | 300 mL | + +--------+ + + | Name | + + | N2O Flow Rate (L/Min) | + + | O2 Flow Rate (L/Min) | + + | Insp O2 | + + | Exp N2O | + + | Exp SEV | + + | Exp ISO | + + | Exp ROSALINO | + + | Air Flow Rate (L/Min) | + + + + | No blood administrations on file. | + + +--------+ + + + | Type | Details | Placement | Removal | +--------+ + + + | Wound | 08/11/18; 0800; Incision; Right; | 08/11/18 08 by | | | | hand | Ethan Mccurdy RN | | +--------+ + + + | Periph | 08/11/18; 722; Left; Distal; | 08/11/18 07 by | 08/11/18914 by | | eramarcelle | Hand; edqy-vqy-katcdu catheter | Ashli Thomas RN | Ivonne Rodriguez | | IV | system; 20 gauge; 0; distraction, | | AMBER Pizarro | | | tolerated well, appears | | | | | comfortable; catheter/device | | | | | intact; 08/11/18; 0915 | | | +--------+ + + + documented in this encounter Social History + +-------+ +--------+------+ | Tobacco [...] Diagnoses Not on filedocumented in this encounter Administered Medications + +--------+ +------+------+------+ | Medication Order | MAR | Action | Dose | Rate | Site | | | Action | Date | | | | + +--------+ +------+------+------+ | ceFAZolin in dextrose (ANCEF) | Given | 08/12/19 | 1 g | | | | IVPB 1 g 1 g, Intravenous, | | 19 7:46 | | | | | Administer over 30 Minutes, Prior | | AM PDT | | | | | to Incision, Starting Fri | | | | | | | 08/11/18 at 0700, For 1 dose, | | | | | | | Pre-op, Indications: Surgical | | | | | | | Prophylaxis | | | | | | + +--------+ +------+------+------+ +---+---+ | | | +---+---+ + +---------+ +---+---+---+ | lactated ringers (LR) infusion | New Bag | 08/12/19 | | | | | Intravenous, CONTINUOUS PRN, | | 19 7:46 | | | | | Starting 08/11/18 at 0746, | | AM PDT | | | | | Anesthesia Intra-op | | | | | | + +---------+ +---+---+---+ +---+---+ | | | +---+---+ + +-------+ +--------+---+---+ | lidocaine 2% injection Other, | Given | 08/12/19 | 100 mg | | | | PRN, Starting Tue08/11/18 at | | 19 7:51 | | | | | 0751, Anesthesia Intra-op | | AM PDT | | | | + +-------+ +--------+---+---+ +---+---+ | | | +---+---+ + +-------+ +------+---+---+ | midazolam (VERSED) 1 mg/mL | Given | 08/12/19 | 2 mg | | | | injection Intravenous, PRN, | | 19 7:50 | | | | | Anxiety, Starting Tue08/11/18 at | | AM PDT | | | | | 0750, Anesthesia Intra-op | | | | | | + +-------+ +------+---+---+ +---+---+ | | | +---+---+ + +-------+ +-------+---+---+ | propofol (DIPRIVAN) injection | Given | 08/12/19 | 40 mg | | | | Intravenous, PRN, Starting Fri | | 19 8:02 | | | | | 08/11/18 at 0751, Anesthesia | | AM PDT | | | | | Intra-op | | | | | | + +-------+ +-------+---+---+ +-------+ +-------+---+---+ | Given | 08/12/19 | 40 mg | | | | | 19 7:59 | | | | | | AM PDT | | | | +-------+ +-------+---+---+ | Given | 08/12/19 | 20 mg | | | | | 19 7:57 | | | | | | AM PDT | | | | +-------+ +-------+---+---+ +---+---+ | | | +---+---+ documented in this encounter"
--- OUTSIDE RECORDS SUMMARY | ~2019-09-17 | XMS | Encounter Summary ---
Demographics + + + | Address | [address] | | | [place] [address] | + + + | Home Phone | | + + + | Preferred Language | Unknown | + + + | Marital Status | | + + + | Baptist Affiliation | Unknown | + + + [...] Team Providers + +------+ + | Care Cook Boat Name | Role | Phone | + +------+ + | Ladan Naidu PA-C | PCP | | + +------+ + Reason for Visit + + + | Reason | Comments | + + + | Post-op Exam | 2 wk PO Right ring finger trigger release. DOS: 08/11/18 | + + + Encounter Details +--------+---------+ + + + | Date | Type | Department | Care Team | Description | +--------+---------+ + + + | 08/22/ | Office | [facility] | Solo Seth, ESTUARDO | S/P right ring | | 2019 | Visit | [facility] | [address] | finger trigger | | | | [address] | [place] | finger release on | | | | [place] | [address] | 08/11/18 | | | | [address] | [phone] | | | | | [phone] | | | +--------+---------+ + + + [...] + + + | Blood Pressure | 130/80 | 08/22/2018 3:28 PM | | | | | PDT | | + + + + + | Pulse | 75 | 08/22/2018 3:28 PM | | | | | PDT | | + + + + + | Temperature | 37.1 C (98.8 F) | 08/22/2018 3:28 PM | | | | | PDT | | + + + + + | Respiratory Rate | 18 | 08/22/2018 3:28 PM | | | | | PDT | | + + + + + | Oxygen Saturation | 98% | 08/22/2018 3:28 PM | | | | | PDT [...] in this encounter Patient Instructions Patient Instructions Solo Seth FNP - 08/22/2018 3:30 PM PDT Second Post-operative Visit Instructions Wound -- The purpose of the second post-operative visit is to check the wound for any infection o r drainage, answer any questions you have had today, and remove your sutures. -- Suture material, like a splinter, is a foreign body for your hand and occasionally you c an have some redness around the wound. This will improve with time once we take out the sut ures. -- If the redness (erythema) keeps worsening or if it is accompanied with fevers, chills an d drainage then call the office for further advice. Dressing -After post-operative day 10 the wound does not need to be covered anymore. If there is an area that is slow to heal or if you feel the need to keep it covered in public to keep it c lean, feel free to do so. Pain medication -- For most soft tissue procedures you should not require any strong pain medication by you r first post-operative visit. Any occasional aches or discomfort at the surgery site should be manageable with over the counter pain medications such as tylenol or ibuprofen. If you are experiencing unmanageable pain please call the office for further advice. Driving -- To drive you must no longer be taking narcotic pain pills (plain Tylenol is allowed). Al so, the operative hand must feel strong enough to manage driving. When to Call If you have severe [...] which will transfer you to the answeri ng service at the hospital and ask for the environmental health inspector orthopedic provider. Be sure to mention t hat you've had surgery recently. documented in this encounter Progress Notes Solo Seth FNP - 08/22/2018 3:30 PM PDT Orthopedic Postoperative Note Patient Name: Aris Garcia | Age: 38 y.o. | : 1980 | [id number] | Author: ALEXANDREA HolmPHamlet | Date of Encounter: 08/22/2018 Surgeon: Silverio Mustafa MD History of present illness Aris Garcia is a 38 y.o. male that follows up in the office 2 weeks status post righ t ring finger STS release of the A1 ritchie with no complications, reporting that he is very pleased with the return of full pain-free range of motion of the finger without any tenderne ss remaining. A few days ago his nylon sutures began to unravel, but they still need to be removed completely. The patient reports: Pain Level: Intermittent Improvement in symptoms: Yes Numbness: None Fevers or chills: None Drainage: None Physical examination Vitals: 08/22/18 1528 BP: 130/80 Pulse: 75 Resp: 18 Temp: 37.1 C (98.8 F) PainSc: 3 PainLoc: Finger Right upper extremity: On today's examination there is: Ecchymosis: None Swelling: None Erythema: None- nylon running suture was removed without complications today Drainage: None The patient can initiate movement in all vectors Fingers are warm and perfused: Yes Assessment Aris was seen today for post-op exam. Diagnoses and all orders for this visit: S/P right ring finger trigger finger release on 08/11/18 Plan 1. Suture removal with wound check today. 2. Range of motion exercises reinforced and post-op instructions given to patient. Follow-Up Return for follow-up is not needed at this time. Past Medical History: Diagnosis Date Asthma Past Surgical History: Procedure Laterality Date CARPAL TUNNEL RELEASE Bilateral FINGER TRIGGER RELEASE Right 08/11/2018 Procedure: RELEASE TRIGGER FINGEr Ring; Surgeon: Silverio Mustafa MD; Location: [facility]ERY Family History Problem Relation Age of Onset Arthritis Mother No known problems Father Social History Tobacco Use Smoking status: Current Every Day Smoker Packs/day: 0.25 Smokeless tobacco: Never Used Substance Use Topics Alcohol use: No Drug use: No ALLERGIES Allergies Allergen Reactions Aspirin Rash Zofran [Ondansetron] Rash I attest to the fact that I have reviewed the patient's medical, surgical, family and socia l histories, medications, allergies, and their vital signs recorded by my tv production assistant today, leslie s found in this chart note. Electronically signed by: ALEXANDREA Holm 08/22/2018 at 16:01 Note: Part of this report was transcribed using voice recognition software. Every effort wa s made to ensure accuracy. However, inadvertent computerized payroll human resources assistant errors may be pre sent. CC: Ladan Naidu PA-C -Thank you for choosing our clinic for your orthopedic care today- documented in this encounter Plan of Treatment Not on filedocumented as of this encounter Visit Diagnoses + + | Diagnosis | + + | S/P right ring finger trigger finger release on 08/11/18 | + + documented in this encounter"
--- OUTSIDE RECORDS SUMMARY | ~2019-09-17 | XMS | Clinical Summary ---
Demographics + + + | Address | [address] | | | [place] [address] | + + + | Home Phone | | + + + | Preferred Language | Unknown | + + + | Marital Status | | + + + | Rastafari Affiliation | Unknown | + + + | Race | Unknown | + + + | Ethnic Group | Unknown | + + + Author + + + | Author | [facility] (Historical as of | | | 12-30-18) | + + + | Organization | [facility] (Historical as of | | | 12-30-18) | + + + | Address | Unknown | + + + | Phone | Unavailable | + + + Support + + +---------+ + | Name | Relationship | Address | Phone | + + +---------+ + | Message,Detailed | ECON | Unknown | | + + +---------+ + | Katie Sky | ECON | Unknown | | + + +---------+ + Care Team Providers + +------+ + | Care Senior Principal Software Engineer Name | Role | Phone | + +------+ + | Ladan Naidu PA-C | PP | Unavailable | + +------+ + Allergies + + + + + + | Active Allergy | Reactions | Severity | Noted | Comments | | | | | Date | | + + + + + + | Aspirin | Itching | Medium | 11/10/19 | | | | | | 16 | | + + + + + + Current Medications + + +-------+---------+------+------+-------+ | Prescription | Sig. | Disp. | Refills | Star | End | Statu | | | | | | t | Date | s | | | | | | Date | | | + + +-------+---------+------+------+-------+ | | Take 1 tablet by | | | | | Activ | | HYDROcodone-acetamin | mouth every 6 (six) | | | | | e | | ophen (NORCO) 10-325 | hours as needed for | | | | | | | MG per tablet | Pain. | | | | | | + + +-------+---------+------+------+-------+ | gabapentin | Take 300 mg by mouth | | | | | Activ | | (NEURONTIN) 300 MG | 3 (three) times | | | | | e | | capsule | daily. | | | | | | + + +-------+---------+------+------+-------+ Active Problems + + + | Problem | Noted Date | + + + | Bilateral carpal tunnel syndrome | 11/10/2015 | + + + Social History + +-------+ +--------+------+ | Tobacco Use | Types | Packs/Day | Years | Date | | | | | Used | | + +-------+ +--------+------+ | Former Smoker | | | | | + +-------+ +--------+------+ + + + | Sex Assigned at | Date Recorded | | | | + + + | Not on file | | + + + Last Filed Vital Signs + + + + | Vital Sign | Reading | Time Taken | + + + + | Blood Pressure | 121/73 | 11/10/2015 11:28 AM PDT | + + + + | Pulse | 67 | 11/10/2015 11:28 AM PDT | + + + + | Temperature | - | - | + + + + | Respiratory Rate | - | - | + + + + | Oxygen Saturation | - | - | + + + + | Inhaled Oxygen | - | - | | Concentration | | | + + + + | Weight | 93 kg (205 lb) | 11/10/2015 11:28 AM PDT | + + + + | Height | 165.1 cm (5' 5") | 11/10/2015 11:28 AM PDT | + + + + | Body Mass Index | 34.11 | 11/10/2015 11:28 AM PDT | + + + + Plan of Treatment + + + + + | Health Maintenance | Due Date | Last Done | Comments | + + + + + | Vaccine: | | | | | Dtap/Tdap/Td (1 - | 0 | | | | Tdap) | | | | + + + + + | Vaccine: Influenza | | | | | (Season Ended) | 0 | | | + + + + + Results Not on filefrom Last 3 Months Insurance + +--------+ +------+-------+ + | Payer | Benefi | Subscriber | Type | Phone | Address | | | t Plan | ID | | | | | | / | | | | | | | Group | | | | | + +--------+ +------+-------+ + | L&I - [employer] | L&I - | [id number] | | | | | | [place] | 6 | | | | | | SAIF | | | | | + +--------+ +------+-------+ + | MEDICAID | RUDOLPHER | [id number] | | | [address] | | | N | | | | [place] | | | [place] | | | | [phone] | | | 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
[~2019-09-17 15:12] MED LIST: BACLOFEN10 MG PO; CARAFATE1 GM PO; CHLORHEXIDINE473 ML MM; DIAZEPAM5 MG PO; DICLOFENAC SOD100 G1 TOP; DICLOFENAC SODI75 MG PO; HYDROCODON-ACE1 EAC8 PO; KEFLEX500 MG PO; MELOXICAM15 MG PO; NORCO 10-325 T1 EACH PO; NORCO 5-325 TA1 EACH PO; PERCOCET 7.5-31 EACH PO; PREDNISONE20 MG PO; PRILOSEC OTC20 MG PO; QVAR7.3 GM INH; SIMVASTATIN10 MG PO; TRAMADOL HCL50 MG PO
--- OUTSIDE RECORDS SUMMARY | 2019-09-17 15:16 | XMS ---
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 ESunny VISIT COUNT (12 MO.) 1 [facility] TOTAL 1 NOTE: Visits indicate total known visits. ED/UCC VISIT TRACKING (12 MO.) 09/17/2019 15:12 [place] TYPE: Emergency COMPLAINT: - LT FOOT INJURY INPATIENT VISIT TRACKING (12 MO.) No inpatient visits to display in this time frame [email or web address]
[2019-09-17] MEDS ORDERED: AMITRIPTYLINE H10 MG PO (15:26)
[2019-09-17] MEDS ORDERED: LIPITOR20 MG GT (15:27)
[2019-09-17] MEDS ORDERED: BUSPIRONE HCL10 MG PO (15:27)
== END 2019-09-17 16:05 | disposition home or self-care (01) ==
LOC: ED 15:12
DX: T69.022A Immersion foot, left foot, initial encounter (principal); J45.909 Unspecified asthma, uncomplicated; E78.00 Pure hypercholesterolemia, unspecified; F17.200 Nicotine dependence, unspecified, uncomplicated; Z79.899 Other long term (current) drug therapy; W45.8XXA Other foreign body or object entering through skin, initial encounter
CPT/HCPCS: 90471; 90715; 99283-25

== ENCOUNTER 2021-01-16 07:30 | Day surgery (SDC) | payer OTHER ==
[~2021-01-16] VITALS: Ht 165.1 cm; Wt 96.5 kg
[~2021-01-16 07:30] MED LIST changes: +AMITRIPTYLINE H10 MG PO; +BUSPIRONE HCL10 MG PO; +LIPITOR20 MG GT; +SUDAFED 12-HOU120 MG PO
[2021-01-16] MEDS ORDERED: HYDROCODON-ACE1 EA10 PO (09:30)
[2021-01-16] MEDS ORDERED: DICLOFENAC SODI75 MG PO (09:30)
--- NOTE | 2021-01-16 09:30 | NUR ---
01/16/21 0930 Alesia Vallejo 0956 PATIENT ARRIVES TO PACU UNRESPONSIVE TO PAIN. ORAL AIRWAY IN PLACE. RESP EVEN AND UNLABORED, MASK AT 6 LITERS.
--- NOTE | 2021-01-16 10:12 | OR ---
[facility] [address], [place] [address] Signed DATE OF OPERATION: 01/16/2021 SURGEON: Isela Barboza MD PREOPERATIVE DIAGNOSIS: Acromioclavicular arthrosis, left shoulder. POSTOPERATIVE DIAGNOSIS: Acromioclavicular arthrosis, left shoulder. PROCEDURE PERFORMED: Jude procedure. ALARM INSTALLER: None. ANESTHESIA: General. BLOOD LOSS: Minimal. BRIEF HISTORY: Tanja is a 40-year-old gentleman with progressive worsening of shoulder pain. He had prior arthroscopy with marginal improvement. Injection to his AC joint provided complete relief, but was temporary in nature. He wished to proceed with a distal clavicle excision. Risks, benefits, and alternatives were discussed and he elected to proceed. DESCRIPTION OF PROCEDURE: Once consent was obtained, he was taken to the operating room. After adequate anesthesia, he was placed in the beach chair position. All downside pressure points were well padded. The left shoulder was prepped and draped in a standard sterile fashion. A 2-inch incision was centered over the AC joint, carried through skin and subcutaneous tissue. This was carried directly down onto the superior AC joint. A longitudinal incision was made in the periosteum and capsule. This was then elevated anteriorly and posteriorly. We then carried that around inferiorly as far as we could. Using retractors, the clavicle was circumferentially stripped. An osteotomy was then made 1 cm medial to the joint. The bone was excised after removing all soft tissue. Any bony remnants were removed. The distal clavicle was then covered with bone Electronically Signed By: ISELA BARBOZA MD 01/16/21 1012 PATIENT NAME: TANJA ECHEVERRIA OPERATIVE REPORT DATE OF : 80 REPORT #: [id number] PHYSICIAN: ISELA BARBOZA MD PCP: ENOC WATTS REPORT IS CONFIDENTIAL AND NOT TO BE RELEASED WITHOUT AUTHORIZATION [facility] [address], [place] [address] Signed wax. There was minimal blood loss. The wound was copiously irrigated with normal saline. The periosteum and superior AC ligaments were then closed using 0 Vicryl. Excellent stability was obtained. The subcutaneous tissue was closed with 2-0 Monocryl and the skin with mer. Wound was then dressed with Acticoat 7 dressing. He tolerated the procedure well. All sponge, needle, and instrument counts were correct. Isela Barboza MD BA/JOLENEL /[id number] Copies: ~ Electronically Signed By: ISELA BARBOZA MD 01/16/21 1012 PATIENT NAME: TANJA ECHEVERRIA OPERATIVE REPORT DATE OF : 80 REPORT #: [id number] PHYSICIAN: ISELA BARBOZA MD PCP: ENOC WATTS REPORT IS CONFIDENTIAL AND NOT TO BE RELEASED WITHOUT AUTHORIZATION
--- NOTE | 2021-01-16 11:11 | NUR ---
PATIENT RESTING IN BED. THE HEAD OF THE BED WAS 45 DEGREES AND HE C/O HAVING A HARD TIME BREATHING. REPOSITIONED THE BED AT 30 DEGREES AND PATIENT STATES THAT FELT BETTER AND BREATHING IMPROVED. VSS WITH A O2 SAT OF 99. PATIENT STATES PAIN 0/10. HE FEELS TINGLING IN HIS LEFT HAND BUT LEFT SHOULDER IS NUMB. PATIENTS DRESSING HAS A SMALL AMOUNT OF RED DRAINAGE ON IT. PATIENT HAS ATE JELLO AND DRANK WATER. AT BEDSIDE. CALL LIGHT WITHIN REACH.
--- NOTE | 2021-01-16 11:30 | NUR ---
PATIENT UPTO THE BATHROOM WITH 1 RN ASSIST AND HIS . PATIENTS GAIT WAS STEADY AND TOLERATED WELL. PATIENT VOIDED 115 ML. PATIENT RATES PAIN 0/10 WHEN UP WALKING. STATES SHOULDER IS STILL NUMB BUT TINGLING IN HIS LEFT HAND.
--- NOTE | 2021-01-16 12:00 | NUR ---
PATIENT WAS SITTING UP IN BED. VSS. HE STATES HE IS HAVING SOME NAUSEA THIS RN OFFERED TO CALL DR. CASE FOR NAUSEA MEDICATION BUT HE DECLINES MEDICATION STATING HE WAS READY TO GO HOME. PATIENTS PAIN IS 0/10 STATING HIS SHOULDER IS NUMB. DRESSING HAS A SMALL AMOUNT OF RED DRAINAGE. WITH PATIENT IN ROOM AND CALL LIGHT WITHIN REACH.
--- NOTE | 2021-01-16 12:10 | NUR ---
PROVIDED PATIENT WITH DISCHARGE INSTRUCTIONS. HE VERBALIZED UNDERSTANDING AND ALL QUESTIONS ANSWERED. PROVIDED PATIENT WITH WHEELCHAIR RIDE TO FRONT OF HOSPITAL WHERE HIS WAS WAITING. PATIENT STATES NAUSEA WAS OK AT THIS POINT.
== END 2021-01-16 15:30 | disposition home or self-care (01) ==
LOC: DS 07:30
PROVIDERS: ATTEND Specialist
PROC: 0PBB0ZZ Excision of Left Clavicle, Open Approach (ICD-10-PCS; principal; 2021-01-16 09:15)
DX: M19.012 Primary osteoarthritis, left shoulder (principal); Z88.8 Allergy status to other drugs, medicaments and biological substances
CPT/HCPCS: 01630; 62320; 64415; 64999; 76942; J0690; J1100; J1885; J2001; J2250; J2704; J2795; J3010; J7121

== ENCOUNTER 2021-01-31 20:04 | Emergency (ER) | payer OTHER ==
[~2021-01-31] VITALS: Ht 165.1 cm; Wt 96.2 kg
[~2021-01-31 20:04] MED LIST changes: +HYDROCODON-ACE1 EA10 PO
--- OUTSIDE RECORDS SUMMARY | 2021-01-31 20:06 | XMS ---
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 ESunny VISIT COUNT (12 MO.) 1 [place] TOTAL 1 NOTE: Visits indicate total known visits. ED/UCC VISIT TRACKING (12 MO.) 01/31/2021 20:05 [facility] [place] TYPE: Emergency COMPLAINT: - HIVES/RASH ALL OVER INPATIENT VISIT TRACKING (12 MO.) No inpatient visits to display in this time frame [email or web address]
[2021-01-31] MEDS ORDERED: HYDROXYZINE HCL25 MG PO (23:48)
== END 2021-02-01 00:04 | disposition home or self-care (01) ==
LOC: ED 20:04
DX: L50.9 Urticaria, unspecified (principal); J45.909 Unspecified asthma, uncomplicated; E78.00 Pure hypercholesterolemia, unspecified; Z87.891 Personal history of nicotine dependence; Z88.6 Allergy status to analgesic agent; Z88.8 Allergy status to other drugs, medicaments and biological substances; Z79.899 Other long term (current) drug therapy; Z79.891 Long term (current) use of opiate analgesic
CPT/HCPCS: 99282